=== PATIENT | female | born 1970 | race Caucasian/White ===

== ENCOUNTER 2020-05-20 12:32 | Emergency (ER) | payer OTHER ==
[2020-05-20 12:36] VITALS: BP 108/71; PULSE 60; TEMP 98.6; BMI 26.6
--- NOTE | 2020-05-20 12:37 | PDOC ---
Rapid Medical Evaluation Chief Complaint: Blood/Body Fluid Exposure SJR Time Seen by Provider: 05/20/20 12:36 Medical Evaluation: Allergies Allergy/AdvReac Type Severity Reaction Status Date / Time No Known Allergies Allergy Verified 05/05/16 14:36 05/20/20 12:36 CC: rt eye splashed with cleaning fluid, irrigated but still with pain Exam: no excessive tearing mild erythema to sclera noted Plan: FT Discharge Disposition - Diagnosis Eye pain - Referrals - Patient Instructions
--- OUTSIDE RECORDS SUMMARY | 2020-05-20 12:50 | XMS ---
:1970 [facility] Support Name Relationship Address Phone [facility] Unavailable [address] [place] [address] [facility] Unavailable [address] [place] [address] UE Unavailable Unavailable Unavailable TATY PFEIFFER FATHER [address] [place] [address] TATY PFEIFFER Parent [address] [place] [address] Re-disclosure Warning The records that you are about to access may contain information from federally- assisted alcohol or drug abuse programs. If such information is present, then the following federally mandated warning applies: This information has been disclosed to you from records protected by federal confidentiality rules (42 CFR part 2). The federal rules prohibit you from making any further disclosure of this information unless further disclosure is expressly permitted by the written consent of the person to whom it pertains or as otherwise permitted by 42 CFR part 2. A general authorization for the release of medical or other information is NOT sufficient for this purpose. The Federal rules restrict any use of the information to criminally investigate or prosecute any alcohol or drug abuse patient.The records that you are about to access may contain highly sensitive health information, the redisclosure of which is protected by Article 27-F of the [place] Public Health law. If you continue you may haveaccess to information: Regarding HIV / AIDS; Provided by facilities licensed or operated by the [place] Office of Mental Health; or Provided by the [place] Office for People With Developmental Disabilities. If such information is present, then the following [place] mandated warning applies: This information has been disclosed to you from confidential records which are protected by state law. State law prohibits you from making any further disclosure of this information without the specific written consent of the person to whom it pertains, or as otherwise permitted by law. Any unauthorized further disclosure in violation of state law may result in a fine or detention sentence or both. A general authorization for the release of medical or other information is NOT sufficient authorization for further disclosure. Insurance Providers Payer name Policy type Policy ID Covered Covered constitution party's Policy P [place] / Coverage constitution party ID relationship to [place] [facility] [id number] SP [id number] EMPLOYEE JOB RELATED INJ [facility] [id number] SP [id number] [facility]P [facility] [id number] SP [id number] [facility]
[2020-05-20] MEDS ORDERED: ACETAMINOPHEN 650 MG/20.3 ML ORAL SOLUTION (CUPS) PO ONE (12:59)
[2020-05-20] MEDS ORDERED: FLUORESCEIN NA 1 EA STRIP OS ONE (13:06)
[2020-05-20] MEDS ORDERED: FLUORESCEIN NA 1 EA STRIP ONE (13:10)
[2020-05-20] MEDS ORDERED: ACETAMINOPHEN 325 MG TABLET (FP) ONE (13:10)
--- NOTE | 2020-05-20 13:34 | PDOC ---
History of Present Illness - General Chief Complaint: Blood/Body Fluid Exposure SJR Stated Complaint: EXPOSURE Time Seen by Provider: 05/20/20 12:36 History Source: Patient Exam Limitations: No Limitations Past History - Travel History Traveled outside of the country in the last 30 days: No Close contact w/someone who was outside of country & ill: No - Medical History Allergies/Adverse Reactions: Allergies Allergy/AdvReac Type Severity Reaction Status Date / Time No Known Allergies Allergy Verified 05/05/16 14:36 Home Medications: Ambulatory Orders Quetiapine Fumarate [Seroquel -] 300 mg PO BID 05/05/16 Quetiapine Fumarate [Seroquel -] 200 mg PO BID #60 tablet 05/06/16 Albuterol Sulfate Inhaler - [Ventolin HFA Inhaler -] 2 inh IH Q4H PRN #1 inhaler 05/27/16 Albuterol Sulfate Inhaler - [Ventolin HFA Inhaler -] 2 puff IH Q4H PRN #1 inhaler 05/27/16 Pantoprazole Sodium [Protonix -] 40 mg PO DAILY #30 tablet.ec 05/27/16 Diphenhydramine [Benadryl Capsule -] 100 mg PO HS PRN #60 capsule 05/30/16 Quetiapine Fumarate [Seroquel -] 300 mg PO BID #60 tablet 05/30/16 Erythromycin 0.5% Eye Ointment [Erythromycin 0.5% Eye Ointment -] 1 applic OS BID #1 tube 05/20/20 Anemia: No Asthma: Yes Cancer: No Cardiac Disorders: No CVA: No COPD: No CHF: No Dementia: No Diabetes: No GI Disorders: Yes (Acid reflux) Disorders: No HTN: No Hypercholesterolemia: No Kidney Stones: No Liver Disease: No Seizures: Yes Thyroid Disease: No - Surgical History Abdominal Surgery: No Appendectomy: No Cardiac Surgery: No Cholecystectomy: No Lung Surgery: No Neurologic Surgery: No Orthopedic Surgery: No - Reproductive History Is Patient Now?: No PID: No - Psycho-Social/Smoking History Smoking History: Current every day smoker Have you smoked in the past 12 months: Yes Number of Cigarettes Smoked Daily: 8 Information on smoking cessation initiated: No 'Breaking Loose' booklet given: 05/05/16 - Substance Abuse Hx (Audit-C & DAST Scrn) How often the patient has a drink containing alcohol: Never Score: In Men: 4 or > Positive; In Women: 3 or > Positive: 0 Screen Result (Pos requires Nsg. Audit-10AR): Negative In the last yr the pt used illegal drug/Rx for NonMed reason: No Score: Yes response is considered Positive: 0 Screen Result (Positive result requires Nsg. DAST-10): Negative Review of Systems - Review of Systems Able to Perform ROS?: Yes Comments:: 05/20/20 16:33 CONSTITUTIONAL: Absent: fever, chills, diaphoresis, generalized weakness, malaise, loss of appetite HEENT: Present: L eye pain Absent: rhinorrhea, nasal congestion, throat pain, throat swelling, difficulty swallowing, mouth swelling, ear pain, visual changes CARDIOVASCULAR: Absent: chest pain, loss of consciousness, palpitations, irregular heart rate, peripheral edema RESPIRATORY: Absent: cough, shortness of breath, dyspnea with exertion, orthopnea, wheezing, stridor, hemoptysis GASTROINTESTINAL: Absent: abdominal pain, abdominal distension, nausea, vomiting, diarrhea, constipation, melena, hematochezia GENITOURINARY: Absent: dysuria, frequency, urgency, hesitancy, hematuria, flank pain, genital pain MUSCULOSKELETAL: Absent: myalgia, arthralgia, joint swelling SKIN: Absent: rash, itching, pallor NEUROLOGIC: Absent: headache, focal weakness or paresthesias, dizziness, unsteady gait, seizure, mental status changes, bladder or bowel incontinence PSYCHIATRIC: Absent: anxiety, depression, suicidal or homicidal ideation, hallucinations. Is the patient limited [place] proficient: No *Physical Exam - Vital Signs Last Vital Signs Temp Pulse Resp BP Pulse Ox 98.6 F 60 16 108/71 100 05/20/20 12:33 05/20/20 12:33 05/20/20 12:33 05/20/20 12:33 05/20/20 12:33 - Physical Exam 05/20/20 16:33 GENERAL: The patient is awake, alert, and fully oriented, in no acute distress. HEAD: Normal with no signs of trauma. EYES: Pupils equal, round and reactive to light, extraocular movements intact, sclera anicteric, conjunctiva clear. OS 40/20, OD 20/20 OU 25/20. Fluorscene stain OS shows no dye uptake. HEENT: No nasal congestion or rhinorrhea. No sinus Tenderness. Mucous membranes are moist. No tonsillar erythema, exudate or edema. Uvula is midline. No TM bulging, dullness or erythema. NECK: Neck is supple. No adenopathy. No meningismus. No stridor. EXTREMITIES: Normal range of motion, no edema. NEUROLOGICAL: Normal speech, normal gait. PSYCH: Normal mood, normal affect. SKIN: Warm, Dry, normal turgor, no rashes or lesions noted. ED Treatment Course - Medications Given in the ED: ED Medications Discontinued Medications Generic Name Dose Route Start Last Admin Trade Name Nata PRN Reason Stop Dose Admin Acetaminophen 650 mg 05/20/20 12:59 05/20/20 13:10 Tylenol Oral Solution - PO 05/20/20 13:00 650 mg ONCE ONE Administration Fluorescein Sodium 1 ea 05/20/20 13:06 05/20/20 13:10 Fluorets - OS 05/20/20 13:07 1 ea ONCE ONE Administration Medical Decision Making - Medical Decision Making 05/20/20 16:36 The patient is a 50-year-old female who presents to the ER today with left eye pain. 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 She states that just before arrival she got toilet bowl metal cleaner in her eye. She states that she immediately flushed out her eye however she still had pain so she came to the ER for evaluation. She states that card to see her left eye. Denies fevers, dizziness. A/P: Chemical exposure On exam the eye shows no conjunctivitis. Fluoroscein stain is equivocal, no uptake noted. Visual acuity left eye is 40/20, patient does not wear glasses. Patient again flushed the eye in the ER. She states that the more she flushes the eye it feels better. Advised her to flush for 10 minutes in the ER. 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 Advised her to keep that appointment for further evaluation. Discharge home with strict return precautions should her visual Acuity worsen or if her pain increased return to the ER. I discussed the physical exam findings, ancillary test results and final diagnoses with the patient. I answered all of the patient's questions. The patient was satisfied with the care received and felt comfortable with the discharge plan and treatment plan. The Patient agrees to follow up with the primary care physician/specialist within 24-72 hours. Return precautions were given. Discharge - Discharge Information Problems reviewed: Yes Clinical Impression/Diagnosis: Chemical exposure of eye Eye pain Qualifiers: Laterality: left Qualified Code(s): H57.12 - Ocular pain, left eye Condition: Stable Disposition: HOME - Admission No - Additional Discharge Information Prescriptions: Erythromycin 0.5% Eye Ointment [Erythromycin 0.5% Eye Ointment -] 1 applic OS BID #1 tube - Follow up/Referral - Patient Discharge Instructions Additional Instructions: You were seen for your chemical exposure to your eye today. Please use the erythromycin ointment twice a day to help with the symptoms as you may have a small corneal abrasion. 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 You may take Tylenol 650 mg every 6 hours as needed for pain. Return to the ER for worsening pain, visual change to give any change in your symptoms - Post Discharge Activity Work/Back to School Note: Back to Work
== END 2020-05-20 13:50 | disposition home or self-care (01) ==
LOC: JERFT 12:32
DX: H57.10 Ocular pain, unspecified eye (principal)
CPT/HCPCS: 99284-25

== ENCOUNTER 2022-10-05 12:23 | Emergency (ER) | payer OTHER ==
[2022-10-05 12:49] VITALS: BP 112/76; PULSE 91; RESP 18; TEMP 97.4; BMI 28.1
[2022-10-05] MEDS ORDERED: IBUPROFEN 600 MG TABLET (FP) PO ONE ×2 (13:21→13:22)
== END 2022-10-05 13:41 | disposition home or self-care (01) ==
LOC: JERFT 12:23
DX: S60.511A Abrasion of right hand, initial encounter (principal); W25.XXXA Contact with sharp glass, initial encounter; Y93.89 Activity, other specified; Y99.0 Civilian activity done for income or pay
CPT/HCPCS: 73140-TC-RT-FY; 99283-25

== ENCOUNTER 2023-05-04 12:43 | Emergency (ER) | payer OTHER ==
[2023-05-04 12:52] VITALS: BP 118/85; PULSE 79; RESP 18; TEMP 98.1; BMI 29.9
[2023-05-04] MEDS ORDERED: ACETAMINOPHEN 500 MG TABLET (FP) PO ONE (13:36)
[2023-05-04] MEDS ORDERED: KETOROLAC TROMETHAMINE 30 MG/1 ML VIAL IM ONE (13:36)
[2023-05-04] MEDS ORDERED: KETOROLAC TROMETHAMINE 30 MG/1 ML VIAL ONE (13:39)
[2023-05-04] MEDS ORDERED: ACETAMINOPHEN 500 MG TABLET (FP) ONE (13:39)
== END 2023-05-04 13:58 | disposition home or self-care (01) ==
LOC: JER 12:43 → JERFT 12:43
PROC: 3E0233Z Introduction of Anti-inflammatory into Muscle, Percutaneous Approach (ICD-10-PCS; principal; 2023-05-04)
DX: M54.6 Pain in thoracic spine (principal); M54.50 Low back pain, unspecified; M79.18 Myalgia, other site; W07.XXXA Fall from chair, initial encounter; Y99.0 Civilian activity done for income or pay
CPT/HCPCS: 99284-25

== ENCOUNTER 2023-11-20 10:30 | Emergency (ER) | payer OTHER ==
[2023-11-20 10:48] VITALS: BP 104/71; PULSE 74; RESP 20; TEMP 97.9; BMI 28.2
[2023-11-20] MEDS: KETOROLAC TROMETHAMINE 30 MG/1 ML VIAL IM ONE (11:26)
[2023-11-20] MEDS ORDERED: KETOROLAC TROMETHAMINE 30 MG/1 ML VIAL ONE (11:27)
[2023-11-20] MEDS ORDERED: EPINEPHrine 1:10,000 (P-F SYR) 1 MG/10 ML DISP.SYRIN ONE (12:41)
[2023-11-20 12:52] LABS: THROAT:GRP A STREP NOT DETECTED (NOTDETECTED)
== END 2023-11-20 15:26 | disposition home or self-care (01) ==
LOC: JERFT 10:30
PROC: 3E023GC Introduction of Other Therapeutic Substance into Muscle, Percutaneous Approach (ICD-10-PCS; principal; 2023-11-20)
DX: M54.50 Low back pain, unspecified (principal); R51.9 Headache, unspecified; J02.9 Acute pharyngitis, unspecified; M79.10 Myalgia, unspecified site; R53.83 Other fatigue; Z20.822 Contact with and (suspected) exposure to COVID-19
CPT/HCPCS: 0241U-QW; 72131-TC; 87651; 99284-25

== ENCOUNTER 2024-05-21 10:02 | Emergency (ER) | payer OTHER ==
[2024-05-21] MEDS ORDERED: METHOCARBAMOL 500 MG TABLET ONE (10:35)
[2024-05-21] MEDS ORDERED: KETOROLAC TROMETHAMINE 30 MG/1 ML VIAL ONE (10:35)
[2024-05-21] MEDS ORDERED: LIDOCAINE 4% PATCH TP ONE (10:35)
[2024-05-21] MEDS: KETOROLAC TROMETHAMINE 30 MG/1 ML VIAL IM ONE (10:45)
[2024-05-21] MEDS: METHOCARBAMOL 750 MG TABLET PO ONE (10:45)
[2024-05-21] MEDS: LIDOCAINE 4% PATCH TP ONE (10:45)
[2024-05-21 10:54] VITALS: BP 120/81; PULSE 73; RESP 18; TEMP 97.8; BMI 27.4
[2024-05-21] MEDS ORDERED: LIDOCAINE PATCH REMOVAL MC ONE (22:00)
== END 2024-05-21 12:10 | disposition home or self-care (01) ==
LOC: JERFT 10:02
PROC: 3E0233Z Introduction of Anti-inflammatory into Muscle, Percutaneous Approach (ICD-10-PCS; principal; 2024-05-21)
DX: M54.40 Lumbago with sciatica, unspecified side (principal)
CPT/HCPCS: 99284-25

== ENCOUNTER 2024-06-06 04:22 | Day surgery (SDC) | payer OTHER ==
[2024-06-05 10:13] VITALS: BMI 27.4
[2024-06-06] MEDS ORDERED: ACETAMINOPHEN 500 MG TABLET (FP) PO PRN (08:54)
[2024-06-06] MEDS: LIDOCAINE HCL 1% PRESERVATIVE FREE - 30ML VIAL IJ ONE (10:12)
[2024-06-06] MEDS: IOHEXOL 180 MG/1 ML ML IJ ONE (10:16)
[2024-06-06] MEDS: DEXAMETHASONE SOD PHOSPHATE 10 MG/1 ML VIAL IM ONE (10:18)
[2024-06-06 10:41] VITALS: RESP 18
[2024-06-06 10:57] VITALS: BP 111/64; PULSE 66; TEMP 97.7
== END 2024-06-06 10:50 | disposition home or self-care (01) ==
LOC: JASU-SURG 04:22
PROVIDERS: ATTEND Pain Medicine Pain Medicine
PROC: 3E0R3BZ Introduction of Anesthetic Agent into Spinal Canal, Percutaneous Approach (ICD-10-PCS; 2024-06-06)
PROC: 3E0R33Z Introduction of Anti-inflammatory into Spinal Canal, Percutaneous Approach (ICD-10-PCS; principal; 2024-06-06 10:15)
DX: M48.061 Spinal stenosis, lumbar region without neurogenic claudication (principal); M54.16 Radiculopathy, lumbar region
CPT/HCPCS: 76000-TC-FY; J1100

== ENCOUNTER 2024-07-05 04:46 | Day surgery (SDC) | payer OTHER ==
[2024-07-04 14:11] VITALS: BMI 27.4
[2024-07-05] MEDS ORDERED: ACETAMINOPHEN 500 MG TABLET (FP) PO PRN (10:08)
[2024-07-05] MEDS: LIDOCAINE HCL 1% PRESERVATIVE FREE - 30ML VIAL IJ ONE ×2 (10:48)
[2024-07-05] MEDS: DEXAMETHASONE SOD PHOSPHATE 10 MG/1 ML VIAL IM ONE ×2 (10:50)
[2024-07-05] MEDS: IOHEXOL 180 MG/1 ML ML IJ ONE ×2 (10:50)
[2024-07-05 11:08] VITALS: BP 109/61; PULSE 50; RESP 16; TEMP 97.6
== END 2024-07-05 11:24 | disposition home or self-care (01) ==
LOC: JASU-SURG 04:46
PROVIDERS: ATTEND Pain Medicine Pain Medicine
PROC: 3E0R3BZ Introduction of Anesthetic Agent into Spinal Canal, Percutaneous Approach (ICD-10-PCS; 2024-07-05)
PROC: 00HU33Z Insertion of Infusion Device into Spinal Canal, Percutaneous Approach (ICD-10-PCS; 2024-07-05)
PROC: 3E0R33Z Introduction of Anti-inflammatory into Spinal Canal, Percutaneous Approach (ICD-10-PCS; principal; 2024-07-05 10:15)
DX: M54.16 Radiculopathy, lumbar region (principal); M48.061 Spinal stenosis, lumbar region without neurogenic claudication
CPT/HCPCS: 76000-TC-FY; J1100